=== PATIENT | male | born 1945 | race Caucasian/White ===

== ENCOUNTER 2016-07-17 10:38 | Emergency (ER) | payer OTHER ==
[2016-07-17 10:49] VITALS: RESP 16
--- NOTE | 2016-07-17 12:08 | CPEKG ---
Heart Rate: 63 RR Interval: 952 P-R Interval: 176 QRSD Interval: 122 QT Interval: 400 QTC Interval: 410 P [place]: 88 QRS [place]: 85 T Wave [place]: 65 EKG Severity - ABNORMAL ECG - EKG Impression: SINUS RHYTHM EKG Impression: RIGHT ATRIAL ABNORMALITY EKG Impression: IVCD, CONSIDER ATYPICAL RBBB Electronically Signed By: Prosper Noriega 17-Jul-2016 12:18:38
[2016-07-17] MEDS ORDERED: NS 1,000 ML IV ONE (12:14)
--- NOTE | 2016-07-17 12:19 | EDPHY ---
H & P Stated Complaint: light headed since 914. Time Seen by Provider: 07/17/16 12:05 HPI/ROS: CHIEF COMPLAINT: Lightheadedness HISTORY OF PRESENT ILLNESS: The patient is a 71-year-old healthy man who does not take any prescription medications who comes to the emergency department complaining of 3 hours of lightheadedness. He states that it began while he was driving to work. He got out of the car and walked around the seemed to help to some degree. His symptoms continued however and he decided to come to the emergency department. No chest pain, palpitations or shortness of breath. No GI symptoms. No recent illness. No fevers. He did hit his head at work 2 days ago and has a minor abrasion. He works at [employer]. He has a history of chronic neck pain and radiculopathy in both arms and is status post neck surgery 7 years ago. He states that this is unchanged from normal. He has not had any weakness numbness or paresthesias. He has not had any slurred speech stroke-like symptoms. He denies headaches. REVIEW OF SYSTEMS: Constitutional: See HPI EENTM: denies: blurred vision, double vision, nose congestion Respiratory: denies: cough, shortness of breath Cardiac: denies: See HPI Gastrointestinal/Abdominal: denies: abdominal pain, diarrhea, nausea, vomiting, blood streaked stools Genitourinary: denies: dysuria, frequency, hematuria, pain Musculoskeletal: denies: joint pain, muscle pain Skin: denies: lesions, rash, jaundice, bruising Neurological: See HPI Hematologic/Lymphatic: denies: blood clots, easy bleeding, easy bruising Immunologic/allergic: denies: HIV/AIDS, transplant EXAM: GENERAL: Well-appearing, well-nourished and in no acute distress. HEAD: Atraumatic, normocephalic. EYES: Pupils equal round and reactive to light, extraocular movements intact, sclera anicteric, conjunctiva are normal. No nystagmus. ENT: TMs normal, nares patent, oropharynx clear without exudates. Moist mucous membranes. NECK: Normal range of motion, supple without lymphadenopathy or JVD. LUNGS: Breath sounds clear to auscultation bilaterally and equal. No wheezes rales or rhonchi. HEART: Regular rate and rhythm without murmurs, rubs or gallops. ABDOMEN: Soft, nontender, normoactive bowel sounds. No guarding, no rebound. No masses appreciated. BACK: No CVA tenderness, no spinal tenderness, step-offs or deformities EXTREMITIES: Normal range of motion, no pitting or edema. No clubbing or cyanosis. NEUROLOGICAL: Cranial nerves II through XII grossly intact. Normal speech, normal gait. 5/5 strength, normal movement in all extremities, normal sensation PSYCH: Normal mood, normal affect. SKIN: Warm, dry, normal turgor, no visible rashes or lesions. Source: Patient Exam Limitations: No limitations - Personal History Current Tetanus Diphtheria and Acellular Pertussis (TDAP): No - Medical/Surgical History Hx Asthma: No Hx Chronic Respiratory Disease: No Hx Diabetes: No Hx Cardiac Disease: No Hx Renal Disease: No Hx Cirrhosis: No Hx Alcoholism: No Hx HIV/AIDS: No Hx Splenectomy or Spleen Trauma: No Other PMH: upper spine stenosis. - Family History Significant Family History: No pertinent family hx - Social History Smoking Status: Never smoked Alcohol Use: None Drug Use: None Constitutional: Initial Vital Signs Temperature (C) 36.3 C 07/17/16 10:45 Heart Rate 76 07/17/16 10:45 Respiratory Rate 16 07/17/16 10:45 Blood Pressure 112/64 07/17/16 10:45 O2 Sat (%) 95 07/17/16 10:45 O2 Delivery Mode Room Air Allergies/Adverse Reactions: Penicillins Allergy (Verified 11/24/11 08:44) Home Medications: Medication Instructions Recorded No Medications [NO HOME 1 ea [facility] [place] Medical Decision Making - Diagnostics EKG Interpretation: An EKG obtained and was read and documented in trace view. Please see trace view for full reading and report. Sinus rhythm, sinus rhythm, interventricular conduction delay, right atrial abnormality no previous for comparison Imaging: Results: CT scan of the head was obtained. The results of the study are negative. The study was read by Dr. Bhat. I viewed the images myself on the PACS system. ED Course/Re-evaluation: 2:25 p.m. we discussed the CT and lab results. The patient is relieved. He states his symptoms have resolved with hydration. He states that he had not been eating or drinking much lately. He has not had any unexplained weight loss. I will road test him if he does well allow him to be discharged at this time and follow up with his primary physician. He is agree with this plan and declines further workup or testing at this time. 2:48 p.m. patient did well and is road test. He feels completely better. I did offer further observation remission he declines. He will follow up with his primary. Differential Diagnosis: Partial list of the Differential diagnosis considered include but were not limited to; pre syncope, arrhythmia, dehydration, electrolyte abnormality and although unlikely based on the history and physical exam, I also considered seizure, infection, hypoxia, hypoglycemia, intoxication. I discussed these differential diagnoses and the plan with the patient as well as the usual and expected course. The patient understands that the diagnosis is provisional and that in medicine we are not always correct and that further workup is often warranted. Usual and customary warnings were given. All of the patient's questions were answered. The patient was instructed to return to the emergency department should the symptoms at all worsen or return, otherwise to followup with the physician as we discussed. - Data Points Laboratory Results: Laboratory Results 07/17/16 12:15 07/17/16 12:15 07/17/16 12:15 WBC 6.85 10^3/uL (3.80-9.50) RBC 5.05 10^6/uL (4.40-6.38) Hgb 14.8 g/dL (13.7-17.5) Hct 45.3 % (40.0-51.0) MCV 89.7 fL (81.5-99.8) MCH 29.3 pg (27.9-34.1) MCHC 32.7 g/dL (32.4-36.7) RDW 13.7 % (11.5-15.2) Plt Count 248 10^3/uL (150-400) MPV 9.7 fL (8.7-11.7) Neut % (Auto) 62.1 % (39.3-74.2) Lymph % (Auto) 25.7 % (15.0-45.0) [place] % (Auto) 8.8 % (4.5-13.0) Eos % (Auto) 2.9 % (0.6-7.6) Baso % (Auto) 0.4 % (0.3-1.7) Nucleat RBC Rel Count 0.0 % (0.0-0.2) Absolute Neuts (auto) 4.25 10^3/uL (1.70-6.50) Absolute Lymphs (auto) 1.76 10^3/uL (1.00-3.00) Absolute Monos (auto) 0.60 10^3/uL (0.30-0.80) Absolute Eos (auto) 0.20 10^3/uL (0.03-0.40) Absolute Basos (auto) 0.03 10^3/uL (0.02-0.10) Absolute Nucleated RBC 0.00 10^3/uL (0-0.01) Immature Gran % 0.1 % (0.0-1.1) Immature Gran # 0.01 10^3/uL (0.00-0.10) Sodium 140 mEq/L (134-144) Potassium 4.6 mEq/L (3.5-5.2) Chloride 102 mEq/L (97-110) Carbon Dioxide 26 mEq/l (22-31) Anion Gap 12 mEq/L (8-16) BUN 20 mg/dL (7-23) Creatinine 0.9 mg/dL (0.7-1.3) Estimated GFR > 60 Glucose 88 mg/dL (70-100) Calcium 8.9 mg/dL (8.5-10.4) Troponin I < 0.012 ng/mL (0-0.034) Medications Given: Discontinued Medications Sodium Chloride (Ns) 1,000 mls @ 0 mls/hr IV EDNOW ONE PRN Reason: Wide Open Stop: 07/17/16 12:15 Last Admin: 07/17/16 12:25 Dose: 1,000 mls Departure - Departure Disposition: Home, Routine, Self-Care Clinical Impression: Pre-syncope, Dehydration Condition: Fair Instructions: Near Syncope (ED), Dehydration (ED) Referrals: Amaury Tracy MD [Primary Care Provider] - 5-7 days, call for appt.
[2016-07-17 12:28] LABS: % IMMATURE GRANULYOCYTES 0.1 % (0.0-1.1); ABSOLUTE IMMATURE GRANULOCYTES 0.01 10^3/uL (0.00-0.10); ADD DIFF? NO; ADD MORPH? NO; ADD SCAN? NO; ATYPICAL LYMPHOCYTE FLAG 10 (0-99); FRAGMENT RBC FLAG 0 (0-99); HEMATOCRIT 45.3 % (40.0-51.0); HEMOGLOBIN 14.8 g/dL (13.7-17.5); LEFT SHIFT FLG 0 (0-99); LIPEMIA HEMOLYSIS FLAG 80 (0-99); MEAN CELL HEMOGLOBIN 29.3 pg (27.9-34.1); MEAN CELL HEMOGLOBIN CONCENTR. 32.7 g/dL (32.4-36.7); MEAN CELL VOLUME 89.7 fL (81.5-99.8); MEAN PLATELET VOLUME 9.7 fL (8.7-11.7); PLATELET CLUMPS FLAG 0 (0-99); PLATELET COUNT 248 10^3/uL (150-400); RED BLOOD CELL COUNT 5.05 10^6/uL (4.40-6.38); RED CELL DISTRIBUTION WIDTH 13.7 % (11.5-15.2)
[2016-07-17 12:51] LABS: ANION GAP 12 mEq/L (8-16); CALCIUM 8.9 mg/dL (8.5-10.4); CARBON DIOXIDE 26 mEq/l (22-31); CHLORIDE 102 mEq/L (97-110); CREATININE 0.9 mg/dL (0.7-1.3); GLOMERULAR FILTRATION RATE > 60; GLUCOSE 88 mg/dL (70-100); POTASSIUM 4.6 mEq/L (3.5-5.2); SODIUM 140 mEq/L (134-144)
[2016-07-17 13:02] LABS: TROPONIN I < 0.012 ng/mL (0-0.034)
--- NOTE | 2016-07-17 13:03 | DX ---
Chest, PA and Lateral, 3 views History: Chest pain, dizziness Comparison: June 22, 2012, August 09, 2005 Findings: Large lung volumes with sparse peripheral vessels and a relatively small heart is consisten t with underlying COPD/emphysema. There is no infiltrate or consolidation. Vague nodularity in the ri ght lower lung is stable since 2013. There is no adenopathy or mass lesion. There is no pleural effus ion or pneumothorax. A moderate -severe upper thoracic dextroscoliosis is stable. Impression: Nothing acute identified in this patient with severe emphysema.
[2016-07-17 13:15] VITALS: TEMP 97.7
--- NOTE | 2016-07-17 13:59 | CT ---
CT Head (Without Contrast) Indication: Dizziness Comparison: None Technique: Standard noncontrast head CT protocol utilizing 5-mm thick collimated slices and field of view of 23 cm. Dose reduction techniques were utilized. Findings: The brain is normally developed. No intracranial hemorrhage, mass lesion, swelling, or ext raaxial fluid collection. The ventricles are normal caliber and midline. The burnett and white matter rodriguez s normal attenuation. No evidence of ischemia. The bones are unremarkable. Paranasal sinuses are david r, except for minimal mucosal thickening in the ethmoid air cells. Impression: Normal brain. No acute intracranial process. Findings discussed with Emergency Department physician, Dr. Prosper Noriega at 12:47 p.m. at July.
[2016-07-17 14:49] VITALS: BP 115/76; PULSE 60; O2SAT 96
== END 2016-07-17 14:47 | disposition home or self-care (01) ==
DX: R55 Syncope and collapse (principal); E86.0 Dehydration

== ENCOUNTER 2017-03-10 12:03 | Emergency (ER) | payer OTHER ==
[2017-03-10 12:18] VITALS: RESP 16; TEMP 97.9
--- NOTE | 2017-03-10 12:34 | CPEKG ---
Heart Rate: 58 RR Interval: 1034 P-R Interval: 168 QRSD Interval: 140 QT Interval: 428 QTC Interval: 421 P [place]: 90 QRS [place]: 85 T Wave [place]: 76 EKG Severity - ABNORMAL ECG - EKG Impression: SINUS RHYTHM EKG Impression: BIATRIAL ABNORMALITIES EKG Impression: IVCD, CONSIDER ATYPICAL RBBB vs. [place]rug[place] pattern EKG Impression: PROBABLE ANTEROSEPTAL INFARCT, AGE INDETERM Electronically Signed By: Jatinder Martínez 13-Mar-2017 08:12:59
[2017-03-10] MEDS ORDERED: ASPIRIN 81 MG CHEWABLE TAB ONE (12:38)
[2017-03-10] MEDS ORDERED: ASPIRIN 81 MG CHEWABLE TAB PO ONE (12:39)
--- NOTE | 2017-03-10 12:39 | EDPHY ---
H & P Time Seen by Provider: 03/10/17 12:19 HPI/ROS: CHIEF COMPLAINT: Chest pain HISTORY OF PRESENT ILLNESS: Patient is a 71-year-old male who presents emergency department with chest pain last Friday. The patient was at home when he developed pain. Last for 1-2 hours and then resolved. It was central. It did not radiate. He denies any associated symptoms such as shortness of breath , nausea, vomiting or diaphoresis. Patient has had no leg pain or swelling. No recent travel. The patient saw his primary care physician today, obtain an EKG was sent to the emergency department for further evaluation. The patient has not taken an aspirin today. REVIEW OF SYSTEMS: My complete review of systems is negative except as mentioned in the HPI. Past Medical/Surgical History: Denies Past surgical history: Noncontributory Social history: Patient does not smoke Smoking Status: Never smoked Physical Exam: Vitals noted GENERAL: Well-appearing, in no acute distress, alert. HEENT: Eyes normal to inspection, normal pharynx, no signs of dehydration. NECK: No thyromegaly, no lymphadenopathy, supple. RESPIRATORY: Clear to auscultation bilaterally, no rales, rhonchi or wheezing. CVS: Regular rate and rhythm, no rubs, murmurs, or gallops. ABDOMEN: Soft, nontender, nondistended, no organomegaly. BACK: Normal to inspection, no CVA tenderness. SKIN: Normal color, no rash, warm, dry. No pallor. EXTREMITIES: No pedal edema, no calf tenderness, no Homans sign or cords, no joint swelling. NEURO/PSYCH: Alert and oriented x3, normal mood and affect, normal motor sensory exam. Constitutional: Initial Vital Signs Temperature (C) 36.6 C 03/10/17 12:10 Heart Rate 57 L 03/10/17 12:10 Respiratory Rate 16 03/10/17 12:10 Blood Pressure 144/84 H 03/10/17 12:10 O2 Sat (%) 98 03/10/17 12:10 O2 Delivery Mode Room Air Allergies/Adverse Reactions: Penicillins Allergy (Verified 03/10/17 12:09) Home Medications: Medication Instructions Recorded No Medications [NO HOME 1 ea [facility] [place] MEDICATIONS] Medical Decision Making - Diagnostics Imaging Results: Imaging Impressions Chest X-Ray 03/10/17 12:39 Impression: Query right lower lobe pneumonia versus aspiration. Recommendation: Follow-up chest radiograph in 4-6 weeks. ED Course/Re-evaluation: In the emergency department I met the patient on arrival. Patient has no chest pain at this time. An IV was placed. Laboratory studies, EKG and chest x-ray were obtained. Patient was given aspirin 324 mg orally. Sinus rhythm at 58. Interventricular conduction delay. Patient seems significantly unchanged from his previous. There is mild elevation in V1. There is previously mild elevation in V1. A new flipped T-wave in V2 from 2016. I reviewed the EKG with Cardiology. Dr. Raleigh Peters reviewed. He felt the flipped T-wave in V2 was lead placement. He did not feel this EKG represented acute cardiac ischemia. He recommended the patient have a negative troponin he could be discharged to follow-up. Of note, the patient's chest pain was on Friday. He has had no chest pain since that time. Troponin is negative. 1355: I rechecked patient. He was doing well. He had no chest pain. He is given warnings prior to leaving. He will return with worsening symptoms. Differential Diagnosis: My differential includes but is not limited to ACS, acute AK, electrolyte abnormality, aortic aneurysm, aortic dissection, GERD, myocarditis, pericarditis , pneumonia - Data Points Laboratory Results: Laboratory Results 03/10/17 12:38 03/10/17 12:38 03/10/17 03/10/17 03/10/17 12:38 12:38 12:38 WBC 6.40 10^3/uL 10^3/uL (3.80-9.50) RBC 4.70 10^6/uL 10^6/uL (4.40-6.38) Hgb 14.0 g/dL g/dL (13.7-17.5) Hct 42.3 % % (40.0-51.0) MCV 90.0 fL fL (81.5-99.8) MCH 29.8 pg pg (27.9-34.1) MCHC 33.1 g/dL g/dL (32.4-36.7) RDW 13.7 % % (11.5-15.2) Plt Count 255 10^3/uL 10^3/uL (150-400) MPV 9.9 fL fL (8.7-11.7) Neut % (Auto) 61.8 % % (39.3-74.2) Lymph % (Auto) 23.8 % % (15.0-45.0) [place] % (Auto) 9.7 % % (4.5-13.0) Eos % (Auto) 3.6 % % (0.6-7.6) Baso % (Auto) 0.6 % % (0.3-1.7) Nucleat RBC Rel Count 0.0 % % (0.0-0.2) Absolute Neuts (auto) 3.96 10^3/uL 10^3/uL (1.70-6.50) Absolute Lymphs (auto) 1.52 10^3/uL 10^3/uL (1.00-3.00) Absolute Monos (auto) 0.62 10^3/uL 10^3/uL (0.30-0.80) Absolute Eos (auto) 0.23 10^3/uL 10^3/uL (0.03-0.40) Absolute Basos (auto) 0.04 10^3/uL 10^3/uL (0.02-0.10) Absolute Nucleated RBC 0.00 10^3/uL 10^3/uL (0-0.01) Immature Gran % 0.5 % % (0.0-1.1) Immature Gran # 0.03 10^3/uL 10^3/uL (0.00-0.10) PT 13.1 SEC SEC (12.0-15.0) INR 1.02 (0.83-1.16) APTT 33.7 SEC SEC (23.0-38.0) Sodium 140 mEq/L mEq/L (134-144) Potassium 4.5 mEq/L mEq/L (3.5-5.2) Chloride 104 mEq/L mEq/L (97-110) Carbon Dioxide 25 mEq/l mEq/l (22-31) Anion Gap 11 mEq/L mEq/L (8-16) BUN 22 mg/dL mg/dL (7-23) Creatinine 0.8 mg/dL mg/dL (0.7-1.3) Estimated GFR > 60 Glucose 82 mg/dL mg/dL (70-100) Calcium 9.1 mg/dL mg/dL (8.5-10.4) Total Bilirubin 0.6 mg/dL mg/dL (0.1-1.4) Conjugated Bilirubin 0.4 mg/dL mg/dL (0.0-0.5) Unconjugated Bilirubin 0.2 mg/dL mg/dL (0.0-1.1) AST 22 IU/L IU/L (17-59) ALT 34 IU/L IU/L (21-72) Alkaline Phosphatase 59 IU/L IU/L (38-126) Troponin I < 0.012 ng/mL ng/mL (0.000-0.034) Total Protein 6.6 g/dL g/dL (6.3-8.2) Albumin 3.8 g/dL g/dL (3.5-5.0) Lipase 187 IU/L IU/L (23-300) Medications Given: Discontinued Medications Aspirin (Aspirin) 324 mg PO EDNOW ONE Stop: 03/10/17 12:40 Last Admin: 03/10/17 12:41 Dose: 324 mg Departure - Departure Disposition: Home, Routine, Self-Care Clinical Impression: Chest pain Qualifiers: Chest pain type: other chest pain Qualified Code(s): R07.89 - Other chest pain Condition: Good Instructions: Chest Pain (ED) Additional Instructions: You need close follow-up with your primary care physician. Return to the emergency department with increasing chest pain, shortness of breath, or any other concerns. Referrals: Amaury Tracy MD [Primary Care Provider] - 2-3 days without fail
[2017-03-10 12:45] LABS: % IMMATURE GRANULYOCYTES 0.5 % (0.0-1.1); ABSOLUTE IMMATURE GRANULOCYTES 0.03 10^3/uL (0.00-0.10); ADD DIFF? NO; ADD MORPH? NO; ADD SCAN? NO; ATYPICAL LYMPHOCYTE FLAG 10 (0-99); FRAGMENT RBC FLAG 0 (0-99); HEMATOCRIT 42.3 % (40.0-51.0); LEFT SHIFT FLG 0 (0-99); LIPEMIA HEMOLYSIS FLAG 80 (0-99); MEAN CELL HEMOGLOBIN 29.8 pg (27.9-34.1); MEAN CELL HEMOGLOBIN CONCENTR. 33.1 g/dL (32.4-36.7); MEAN PLATELET VOLUME 9.9 fL (8.7-11.7); PLATELET CLUMPS FLAG 0 (0-99); PLATELET COUNT 255 10^3/uL (150-400); RED CELL DISTRIBUTION WIDTH 13.7 % (11.5-15.2)
[2017-03-10 12:57] LABS: INR 1.02 (0.83-1.16); PROTIME(PATIENT) 13.1 SEC (12.0-15.0)
[2017-03-10 12:58] LABS: APTT 33.7 SEC (23.0-38.0)
[2017-03-10 13:01] LABS: ALANINE AMINOTRANSFERASE 34 IU/L (21-72); ALBUMIN 3.8 g/dL (3.5-5.0); ALKALINE PHOSPHATASE 59 IU/L (38-126); ANION GAP 11 mEq/L (8-16); ASPARTATE AMINOTRANSFERASE 22 IU/L (17-59); BILIRUBIN,TOTAL 0.6 mg/dL (0.1-1.4); BILIRUBIN-CONJUGATED 0.4 mg/dL (0.0-0.5); BILIRUBIN-UNCONJUGATED 0.2 mg/dL (0.0-1.1); CALCIUM 9.1 mg/dL (8.5-10.4); CARBON DIOXIDE 25 mEq/l (22-31); CHLORIDE 104 mEq/L (97-110); CREATININE 0.8 mg/dL (0.7-1.3); GLOMERULAR FILTRATION RATE > 60; GLUCOSE 82 mg/dL (70-100); POTASSIUM 4.5 mEq/L (3.5-5.2); SODIUM 140 mEq/L (134-144); TOTAL PROTEIN 6.6 g/dL (6.3-8.2)
[2017-03-10 13:12] LABS: TROPONIN I < 0.012 ng/mL (0.000-0.034)
[2017-03-10 14:23] VITALS: BP 123/89; PULSE 62; O2SAT 96
== END 2017-03-10 14:21 | disposition home or self-care (01) ==
LOC: CED 12:03
DX: R07.89 Other chest pain (principal)
CPT/HCPCS: 71020-PO; 80048-PO; 80076-PO; 83690-PO; 84484-PO; 85025-PO; 85610-PO; 85730-PO